=== PATIENT | male | born 2005 | race Caucasian/White ===

== ENCOUNTER 2025-01-04 12:20 | Emergency (ER) | payer OTHER, SELFPAY ==
[2025-01-04 12:21] VITALS: BP 150/78; PULSE 86; RESP 18; TEMP 36.7; O2SAT 98
--- NOTE | 2025-01-04 14:19 | ED_ITS ---
HPI - Wound/Laceration General Chief Complaint: Wound/Laceration Stated Complaint: laceration Time Seen by Provider: 01/04/25 13:17 Source: patient Mode of arrival: ambulatory Limitations: no limitations History of Present Illness HPI narrative: 19-year-old otherwise healthy here with a complains of laceration to his right 5th finger sustained prior coming to the ER with a metal piece. He has no other injuries Onset (ago): hour(s) (1) Location: other ( his right 5th finger) Related Data Allergies Allergy/AdvReac Type Severity Reaction Status Date / Time No Known Allergies Allergy Verified 01/04/25 13:20 Review of Systems Review of Systems: All systems reviewed & are unremarkable except as noted in HPI and below Constitutional: Constitutional: Reports no additional constitutional complaints Eyes: Eyes: Reports no additional eye complaints ENT: Reports system reviewed and no additional complaints, except as documented Cardiovascular: Cardiovascular: Reports no additional cardiovascular complaints Respiratory: Respiratory: Reports no additional respiratory complaints Gastrointestinal: Gastrointestinal: Reports no additional gastrointestinal complaints Musculoskeletal: Musculoskeletal: Reports as per HPI Exam Narrative: GENERAL: Well-appearing, well-nourished, and in no acute distress. HEAD: Normocephalic, atraumatic. EYES: PERRLA and EOMI. ENT: Nares clear, no rhinorrhea or epistaxis. Mucous membranes moist. NECK: Supple. CHEST: Clear to auscultation. No respiratory distress. HEART: Regular rate and rhythm. No murmur heard. Normal peripheral pulses. EXTREMITIES: Normal range of motion. No edema. 1.5 cm laceration on the PIP joint of the 5th finger of right hand SKIN: Warm, dry, no rash. NEURO: No focal deficits. Alert and oriented x3. PSYCH: Normal mood and affect. Course Vital Signs Vital signs: Vital Signs Temperature 36.7 C 01/04/25 12:21 Pulse Rate 86 01/04/25 12:21 Respiratory Rate 18 01/04/25 12:21 Blood Pressure 150/78 H 01/04/25 12:21 Pulse Oximetry 98 01/04/25 12:21 Oxygen Delivery Room Air 01/04/25 12:21 Temperature 36.7 C 01/04/25 12:21 Pulse Rate 86 01/04/25 12:21 Respiratory Rate 18 01/04/25 12:21 Blood Pressure 150/78 H 01/04/25 12:21 Pulse Oximetry 98 01/04/25 12:21 Oxygen Delivery Room Air 01/04/25 12:21 Procedures Laceration Laceration 1: Date: 01/04/25 Site: hand ( right 5th finger and the PIP) Size (cm): 1.5 Description: linear Depth: simple, single layer Local Anesthetic: lidocaine 1% and with epi Pre-repair: irrigated ====== Skin Level ====== Skin layer closed with: nylon Size (cm): 5-0 Number of sutures: 4 Technique: running ====== Subcutaneous Layer ====== ====== Muscle Layer ====== ====== Tendon Layer ====== Discharge Plan Discharge Clinical Impression: Laceration Patient Disposition: Home Condition: Stable Instructions: Finger Laceration (ED) Additional Instructions: Sutures off 7 days, keep the wound clean if infection follow-up with the primary doctor or return to the ER. Patient Language: Irish Follow-up/Referrals: PHYSICIAN,ACUTE CARE NURSING ASSISTANT [Primary Care Provider, Internal Medicine] Joselito Flores MD [Physician, Family Practice] Time of Disposition: 14:35
[2025-01-04] MEDS: TETANUS,DIPHTHERIA,AC PERTUSSIS ADULT (0.5 ML) BOOSTRIX IM (14:41)
--- OUTSIDE RECORDS SUMMARY | 2025-01-04 16:53 | XMS_ITS | Clinical Summary ---
Author Organization [facility] Address [address] [place] [address] Care Team Providers Care Field Seismologist Name Role Phone Rohit Luu MD, Eitan Brownlee Primary Care Provide r Allergies Active Allergy Reactions Criticality Noted Date Comments Latex Rash Medium 11/04/2022 Oxycodone Itching Medium 11/04/2022 Medications ondansetron (ZOFRAN) 4 mg tablet Take 1 tablet (4 mg total) by mouth every 6 (six) hours 12 tablet 5 Active Additional Information Patient not taking.Reported on 05/21/2024 meclizine (ANTIVERT) 25 mg tablet Take 1 tablet (25 mg total) by mouth 3 (three) times a day as needed for dizziness 30 tablet 5 Active Additional Information Patient not taking.Reported on 05/21/2024 diclofenac sodium (VOLTAREN) 1 % gelIndications: Pain Apply 2 g topically 3 (three) times a day 200 g 2 5 Active Active Problems Problem Noted Date Diagnosed Date Preventative health care 11/04/2022 Assessment & Plan (05/21/2024 2:38 PM CDT): Reviewed labs, screenings and vaccines Assessment & Plan (11/04/2022 9:34 AM CDT): Reviewed labs, screenings and vaccines Encounters Date Type Department Care Team Description 01/04/2025 Telephone [facility] Primary Care [facility] [address] [place] [phone] Eitan Bee Jr., MD Medical Question/Miscellaneous from Last 3 Months Immunizations Immunization Administration Dates Next Due HPV9 11/18/2020,09/11/2020 Influenza, Quadrivalent, Amalia l Culture-based MDCK, Preservative Free, Antibiotic Free, Intramuscular 12/25/2019 Influenza, Quadrivalent, Spl it, Pediatric, Preservative Free, Intramuscular 03/07/2018 Influenza, Quadrivalent, Spl it, Preservative Free, Intramuscular 12/24/2015 Influenza, Unspecified 05/21/2024(Deferr ed: Patient Refused),12/23/2023(Deferred: Patient Refused),11/04/2022(Deferred: Patient Refused),12/22/2021(Deferred: Patient Refused) Meningococcal MCV4P (Menactra) 08/27/2014 Tdap 08/27/2014 Surgical History Surgery Date Site/Laterality Comments NO PAST SURGERIES Medical History Medical History Date Comments Patient denies medical problems Known health problems: none Family History Medical History Relation Name Comments Heart disease Father Derik Denney Hypertension Father Derik Denney Kidney disease Father Derik Denney Cancer Maternal Grandfather Escobar Acharya II Cancer Maternal Grandmother Bj [place] Asthma Mother Yue Denney Cancer Mother Yue Denney Thyroid cancer Mother Yue Denney Bleeding Disorder Neg Hx Relation Name Status Comments Father Derik Denney Alive Maternal Grandfather Escobar Acharya II Alive Maternal Grandmother Bj [place] Alive Mother Yue Denney Alive Social History Tobacco Use Types Packs/Day Years Used Date Smoking Tobacco: Never Smokeless Tobacco: Never AUDIT-C Answer Date Recorded Q1: How often do you have a drink containing alcohol? Never 05/21/2024 Q2: How many drinks containi ng alcohol do you have on a typical day when you are drinking? Patient does not drink Q3: How often do you have si x or more drinks on one occasion? Never 05/21/2024 PHQ-2 Answer Date Recorded PHQ-2 Total Score (If total score is 3 or more points, staff should administer the PHQ-9) 0 05/21/2024 Personal Safety Answer Date Recorded Have you ever been in or are you currently in a harmful physical or emotional relationship or is someone making you feel afraid or unsafe? Denies 03/31/2024 Sex and Gender Information Value Date Recorded Sex Assigned at Not on file Legal Sex Male 8:20 PM CDT Gender Identity Not on file Sexual Orientation Not on file Last Filed Vital Signs Vital Sign Reading Time Taken Comments Blood Pressure 126/72 05/21/2024 2:27 PM CDT Pulse 100 05/21/2024 2:27 PM CDT Temperature 36.3 C (97.4 F) 05/21/2024 2:27 PM CDT Respiratory Rate 18 05/21/2024 2:27 PM CDT Oxygen Saturation 97% 05/21/2024 2:27 PM CDT Inhaled Oxygen Concentration - - Weight 97.1 kg (214 lb) 05/21/2024 2:27 PM CDT Height 180.3 cm (5' 11) 05/21/2024 2:27 PM CDT Body Mass Index 29.85 05/21/2024 2:27 PM CDT Plan of Treatment Health Maintenance Due Date Last Done Comments Hepatitis C Screening 2003 Varicella Vaccines (1 of 2 - 13+ 2-dose series) 06/20/2016 Meningococcal B Vaccine (1 o f 2 - Standard) 2019 HPV Vaccines (3 - Male 3-dos e series) 03/14/2021 11/18/2020, 09/11/2020 Hepatitis B Screening 06/20/2021 DTaP/Tdap/Td Vaccine (2 - Td or Tdap) 08/27/2024 08/27/2014 Covid-19 Vaccine (3 - 2024-2 6 season) 2024 10/02/2020, 09/11/2020 Influenza Vaccine (#1) 2024 , 03/07/2018, 12/24/2015 Depression Screening 05/21/2025 05/21/2024, 04/04/2024, 11/04/2022 Regular Well Visit/Exam 18-64 05/21/2025, 11/04/2022 Meningococcal Vaccine Aged Out 08/27/2014 No elisa mag eligible based on patient's age to complete this topic Pneumococcal vaccine <65 Aged Out No longer eligible based on patient's age to complete this topic Insurance [facility] Advance Directives For more information, please contact: [phone] Documents on File Type Date Recorded Patient Sign Hanger Supervisor Expl anation Power of Bonding And Composite Fabricator 11/04/2022 8:18 AM Care Teams Field Seismologist Relationship Specialty Start Date End Date Eitan Bee Jr., MD [address] [place] [phone] PCP - General Internal Medicine 11/04/22
--- OUTSIDE RECORDS SUMMARY | 2025-01-04 16:53 | XMS_ITS | Encounter Summary ---
Author Organization [facility] Address [address] [place] [address] Care Team Providers Care Perishable Freight Inspector Name Role Phone Rohit Luu MD, Eitan Brownlee Primary Care Provide r Reason for Visit * Reason Onset Date Comments Medical Question/Miscellaneous 01/04/2025 Encounter Details Date Type Department Care Team ([facility] Contact Info) Description 01/04/2025 Telephone [facility] Primary Care [address] [place] [phone] Eitan Bee Jr., MD [address] [place] [phone] Medical Question/Miscellaneous Social History Tobacco Use Types Packs/Day Years [...] on file Sexual Orientation Not on file documented as of this encounter Miscellaneous Notes * Telephone Encounter - [place] - 01/04/2025 12:43 PM CST Medical Question/Miscellaneous Caller???s Concern: Pt mom calling to find out when last teatnus shot was, FUEL INJECTION SERVICER gave 08/2014 Does message need to be routed? No URFACE AUGMENTEE OPERATOR documented in this encounter Plan of Treatment Not on file documented as of this encounter Visit Diagnoses Not on filedocumented in this encounter Care Teams Perishable Freight Inspector Relationship Specialty Start Date End Date Eitan Bee Jr., MD [address] [place] [phone] PCP - General Internal Medicine 11/04/22 documented as of this encounter
--- OUTSIDE RECORDS SUMMARY | 2025-01-04 18:52 | XMS_ITS | Clinical Summary ---
Author Organization [facility] Address [address] [place] [address] Care Team Providers Care School Age Teacher Name Role Phone Unavailable Primary Care Provider Unavailabl e Social History Tobacco Use Types Packs/Day Years Used Date Smoking Tobacco: Never Assessed Sex and Gender Information Value Date Recorded Sex Assigned at Not on file Legal Sex Male 6:06 PM CDT Gender Identity Not on file Sexual Orientation Not on file Plan of Treatment Health Maintenance Due Date Last Done Comments Annual Physical 06/20/2006 HPV Vaccines (1 - Male 3-dos e series) 06/20/2018 Meningococcal B Vaccine (1 o f 2 - Standard) 2019 Hepatitis C 06/20/2021 DTaP, Tdap and Td Vaccines ( 1 - Tdap) 06/20/2022 Hepatitis B Vaccines (1 of 3 - 19+ 3-dose series) 06/20/2022 COVID-19 Vaccine (1 - 2024-2 6 season) 2024 Influenza Adult (#1) 2024 Hepatitis A Vaccines Aged Out No long er eligible based on patient's age to complete this topic Meningococcal Vaccine Aged Out No elisa mag eligible based on patient's age to complete this topic Pneumococcal Vaccine: Pediat rics (0 to 5 Years) and At-Risk Patients (6 to 49 Years) Aged Out No longer eligible b ased on patient's age to complete this topic RSV Immunizations Under 20 Months Aged Out No longer eligible based on patient's age to complete this topic
--- OUTSIDE RECORDS SUMMARY | 2025-01-04 18:52 | XMS_ITS | Patient Health Record ---
Author Organization [facility] Address [address] [place], [place] [id number] Support Name Relationship Address Phone AMY MAXWELL Guarantor Unknown [phone] Reason For Referral No Information Plan Of Treatment No Information
== END 2025-01-04 14:54 | disposition home or self-care (01) ==
PROVIDERS: Emergency Provider Family Medicine
DX: S61.216A Laceration without foreign body of right little finger without damage to nail, initial encounter (principal); Z23 Encounter for immunization; W26.8XXA Contact with other sharp object(s), not elsewhere classified, initial encounter
CPT/HCPCS: 12001; 90471; 90715; 99282